=== PATIENT | female | born 1955 | race Caucasian/White ===

== ENCOUNTER 2021-04-11 11:32 | Emergency (ER) | payer MEDICARE, MEDICAID ==
[~2021-04-11] VITALS: Ht 167.6 cm; Wt 72.3 kg
[2021-04-11] MEDS ORDERED: TRIAMCINOLONE A15 GM TP (12:35)
[2021-04-11 13:30] VITALS: BP 138/64; PULSE 78; TEMP 98
== END 2021-04-11 13:40 | disposition home or self-care (01) ==
LOC: COL.ER 11:32
DX: L30.9 Dermatitis, unspecified (principal)